=== PATIENT | male | born 1980 | race Caucasian/White ===

== ENCOUNTER → 2018-09-18 | Outpatient (REF) | payer OTHER ==
[2018-09-18 20:52] LABS: C REACTIVE PROTEIN QUANTITATIV < 0.30 MG/DL (0.00-0.30); RHEUMATOID FACTOR QUANT < 10.0 IU/ML (<15.0)
[2018-09-20 17:10] LABS: ANTINUCLEAR ANTIBODIES DIRECT Negative (Negative); Lyme Disease IgG/IgM Antibodie <0.91 ISR (0.00-0.90); Lyme Disease IgM Ab Quantitati <0.80 index (0.00-0.79)
== END ==
LOC: M SFHCLERA 19:27
PROVIDERS: ATTEND Physician Assistant
DX: M25.50 Pain in unspecified joint (principal)

== ENCOUNTER → 2018-11-29 | Outpatient (CLI) | payer OTHER ==
[~2018-11-29] MED LIST: ATOV5SUS PO; B-1100TA2 PO; FOLI1TAB11 PO; METH2.5T48 PO; OMEP-221 PO; PERC5TAB12 PO; PRED20TA PO; VITA500045 PO
--- NOTE | 2018-11-29 10:01 | REP ---
HISTORY: Neck pain. No trauma whatsoever. COMPARISON: No priors. There is endplate irregularity and a mild anterior wedge-shaped deformity seen involving C6. This is chronic. The disc spaces are symmetric and well maintained. Vertebral body height and alignment is otherwise unremarkable. Four limited views cannot assess the intervertebral foramina. There is a calcification in the left neck, possibly from carotid arterial calcifications. IMPRESSION: 1. I cannot rule out a fracture on this limited exam. 2. Chronic changes are suspected as described above. 3. Exam limitations as described above. Electronically Signed by Oziel Hernandez DO 11/29/2018 09:44 A
[2018-11-29 11:22] LABS: BASO # 0.1 10^3/uL (0.0-0.2); EOS # 0.4 10^3/uL (0.0-0.50); EOS % 5.9 % (0.0-3.0); HEMATOCRIT 46.6 % (42.0-52.0); HEMOGLOBIN 14.8 g/dl (13.5-17.5); LYMPH # 2.4 10^3/uL (1.5-4.5); LYMPH % 33.9 % (24.0-44.0); MEAN CORPUSCULAR HGB CONC 31.8 g/dl (32.0-36.5); MEAN CORPUSCULAR VOLUME 94.3 fl (80.0-96.0); MONO # 0.5 10^3/uL (0.0-0.8); MONO % 7.4 % (0.0-5.0); NEUTROPHILS # 3.7 10^3/uL (1.8-7.7); NEUTROPHILS % 51.2 % (36.0-66.0); PLATELET COUNT, AUTOMATED 236 10^3/uL (150-450); RED BLOOD COUNT 4.94 10^6/uL (4.30-6.10); WHITE BLOOD COUNT 7.2 10^3/uL (4.0-10.0)
[2018-11-29 11:45] LABS: ERYTHROCYTE SEDIMENTATION RATE 5 mm/hr (0-15)
[2018-11-29 11:56] LABS: ALBUMIN 3.7 GM/DL (3.2-5.2); ALT/SGPT 355 U/L (12-78); BILIRUBIN,TOTAL 0.2 MG/DL (0.2-1.0); BLOOD UREA NITROGEN 12 MG/DL (7-18); CALCIUM LEVEL 9.4 MG/DL (8.5-10.1); CARBON DIOXIDE LEVEL 32 MEQ/L (21-32); CHLORIDE LEVEL 104 MEQ/L (98-107); CHOLESTEROL LEVEL 185 MG/DL (<200); CPK CREATINE PHOSPHOKINASE 7746 U/L (39-308); CREATININE FOR GFR 0.45 MG/DL (0.70-1.30); FREE T4 0.95 NG/DL (0.76-1.46); GLOMERULAR FILTRATION RATE > 60.0 (>60); GLUCOSE, FASTING 100 MG/DL (70-100); HDL CHOLESTEROL 37 MG/DL (>40); LDL CHOLESTEROL 116 MG/DL (<100); MAGNESIUM LEVEL 1.9 MG/DL (1.8-2.4); NON-HDL-C 148 MG/DL; POTASSIUM SERUM 4.6 MEQ/L (3.5-5.1); PROSTATIC SPECIFIC AG MONITOR 0.44 NG/ML (< 4.00); SODIUM LEVEL 141 MEQ/L (136-145); TRIGLYCERIDES LEVEL 161 MG/DL (<150)
[2018-12-03 00:09] LABS: Lyme Disease IgG/IgM Antibodie <0.91 ISR (0.00-0.90); Lyme Disease IgM Ab Quantitati <0.80 index (0.00-0.79)
== END ==
LOC: M WUC 08:45
PROVIDERS: ATTEND Family Medicine
DX: M62.50 Muscle wasting and atrophy, not elsewhere classified, unspecified site (principal); M62.81 Muscle weakness (generalized); Z00.00 Encounter for general adult medical examination without abnormal findings; M54.2 Cervicalgia

== ENCOUNTER 2019-03-28 08:54 | Emergency (ER) | payer OTHER ==
[~2019-03-28] VITALS: Ht 175.3 cm; Wt 65.9 kg
[2019-03-28] MEDS ORDERED: NS 1,000 ML IV SCH (09:09)
[2019-03-28] MEDS ORDERED: MORPHINE 2 MG/ML 1ML VIAL (J2270) IV PRN (09:15)
[2019-03-28] MEDS ORDERED: ONDANSETRON 4MG/2ML VIAL (J2405) IV ONE (09:15)
[2019-03-28] MEDS ORDERED: VITA500045 PO (09:20)
[2019-03-28] MEDS ORDERED: ATOV5SUS PO (09:20)
[2019-03-28] MEDS ORDERED: OMEP-221 PO (09:20)
[2019-03-28] MEDS ORDERED: METH2.5T48 PO (09:20)
[2019-03-28] MEDS ORDERED: FOLI1TAB11 PO (09:20)
[2019-03-28] MEDS ORDERED: B-1100TA2 PO (09:20)
[2019-03-28] MEDS ORDERED: PRED20TA PO (09:20)
[2019-03-28 09:35] LABS: BASO % 0.4 % (0.0-1.0); EOS % 0.4 % (0.0-3.0); HEMOGLOBIN 13.3 g/dl (13.5-17.5); LYMPH # 1.2 10^3/uL (1.5-5.0); LYMPH % 13.1 % (24.0-44.0); MEAN CORPUSCULAR HEMOGLOBIN 30.4 pg (27.0-33.0); MEAN CORPUSCULAR HGB CONC 31.7 g/dl (32.0-36.5); MEAN CORPUSCULAR VOLUME 96.1 fl (80.0-96.0); MONO # 0.7 10^3/uL (0.0-0.8); NEUTROPHILS # 7.1 10^3/uL (1.5-8.5); NEUTROPHILS % 77.1 % (36.0-66.0); PLATELET COUNT, AUTOMATED 181 10^3/uL (150-450); RED BLOOD COUNT 4.37 10^6/uL (4.30-6.10); WHITE BLOOD COUNT 9.2 10^3/uL (4.0-10.0)
[2019-03-28 09:49] LABS: INR 0.99; PROTHROMBIN TIME 12.8 SECONDS (11.8-14.0)
[2019-03-28 09:55] LABS: ERYTHROCYTE SEDIMENTATION RATE 57 mm/hr (0-15)
[2019-03-28 10:28] LABS: ALBUMIN 3.6 GM/DL (3.2-5.2); ALT/SGPT 28 U/L (12-78); BILIRUBIN,DIRECT 0.2 MG/DL (0.0-0.2); BILIRUBIN,TOTAL 0.6 MG/DL (0.2-1.0); BLOOD UREA NITROGEN 20 MG/DL (7-18); CALCIUM LEVEL 9.2 MG/DL (8.5-10.1); CARBON DIOXIDE LEVEL 32 MEQ/L (21-32); CHLORIDE LEVEL 97 MEQ/L (98-107); CK-MB VALUE MASS 5.5 NG/ML (<3.6); CPK CREATINE PHOSPHOKINASE 218 U/L (39-308); CREATININE FOR GFR 0.67 MG/DL (0.70-1.30); GLOMERULAR FILTRATION RATE > 60.0 (>60); GLUCOSE, FASTING 120 MG/DL (70-100); LIPASE 151 U/L (73-393); MB/CK RELATIVE INDEX 2.52 (< OR =4); MYOGLOBIN 68 NG/ML (16-116); POTASSIUM SERUM 3.9 MEQ/L (3.5-5.1); SODIUM LEVEL 138 MEQ/L (136-145); TOTAL PROTEIN 7.3 GM/DL (6.4-8.2); TROPONIN I < 0.02 NG/ML (< 0.10)
--- NOTE | 2019-03-28 10:29 | REP ---
AP PORTABLE CHEST: 03/28/2019 at 9:37 AM. CLINICAL HISTORY: Chest pain. FINDINGS: No prior studies. Lungs hypoinflated. Some patchy atelectasis or infiltrate in the left CP angle. Small effusion difficult to exclude, but none definitely identified. Heart size magnified by low level of inspiration and portable technique. No janet edema. The aorta and airway intact. Right lung clear. IMPRESSION: 1. Left base subsegmental atelectasis or patchy infiltrate at the left CP angle. Small effusion not excluded. 2. Right lung clear. Mild hypoinflation. Heart size magnified by portable hypoinflated technique. Electronically Signed by Yaya Waddell MD 03/28/2019 07:47 P
[2019-03-28] MEDS ORDERED: KETOROLAC 30 MG/ML VIAL (J1885) IV ONE (10:45)
[2019-03-28] MEDS ORDERED: ISOVUE-370 76% 100ML VIAL (Q9967) As Ordered ONE (10:51)
--- NOTE | 2019-03-28 12:13 | REP ---
CT ANGIOGRAM OF THE CHEST, 03/28/2019. COMPARISON: Portable chest this date. CLINICAL HISTORY: Chest pain. TECHNIQUE: Bolus of 75 mL Isovue-370 and scanning through the chest with pulmonary angiogram protocol and with coronal and sagittal reconstructions and standard and MIP reformats. FINDINGS: There is a small left pleural effusion and trace right effusion. Patchy basilar atelectasis or infiltrates noted, left greater than right. No dense consolidations. There is no pneumothorax. Mid and upper lung zones without infiltrate or atelectasis. No pleural plaques or calcified plaques are noted. Heart is mildly prominent with left atrial and ventricular enlargement. There is no pericardial thickening or effusion. The aorta is without aneurysm or dissection. The main, right, and left pulmonary arteries within the mediastinum are without filling defects. Lobar, segmental, and visible subsegmental arteries are also without filling defects or vessel cutoff. There is no pathologic sized mediastinal, hilar, axillary, or supraclavicular adenopathy/mass. The largest node in the brinda is an 8 mm node on the left. Bone windows show the sternum, manubrium, medial clavicles, scapulae, humeral heads, and the visualized ribs all intact and without fracture or focal lesion. Spine shows a few small marginal osteophytes without compression deformity of destructive lesion. In the upper abdomen, that portion of liver and spleen included are unremarkable. Neither is seen in their entirety. Adrenal glands are grossly normal. Portion of the pancreas including body and tail are unremarkable. I see no hiatal hernia. That portion of stomach and bowel loops included also unremarkable. Upper poles kidneys seen are intact. IMPRESSION: 1. Small left and trace right effusion with subsegmental atelectatic changes or compressive atelectasis in both bases, left more than right. 2. No dense consolidation with air bronchograms. 3. Mid and upper lung zones clear. 4. Some cardiomegaly with left atrial and ventricular enlargement but no pathologic-sized mediastinal, hilar, or axillary lymphadenopathy. 5. No CT evidence of pulmonary thromboembolism or aortic dissection/aneurysm. Electronically Signed by Yaya Waddell MD 03/28/2019 07:55 P
[2019-03-28] MEDS ORDERED: PERC5TAB12 PO (12:30)
[2019-03-28] MEDS ORDERED: PERCOCET 5MG/325MG TAB PO ONE (12:30)
[2019-03-28 12:35] VITALS: BP 105/61
--- NOTE | 2019-03-28 13:25 | ECGEPIP ---
[facility] - ED Test Date: 2019-03-28 Pat Name: NANCY AKHTAR Department: Room: - Gender: Male Clinical Interviewer: vishnu : 1980 Requested By: Perri Roth Order Number: [id number] Reading MD: Perri Roth Measurements Intervals [place] Rate: 73 P: 58 SD: 195 QRS: 1 QRSD: 104 T: 31 QT: 376 QTc: 416 Interpretive Statements SINUS RHYTHM LEFT ATRIAL ENLARGEMENT INCOMPLETE RIGHT BUNDLE BRANCH BLOCK POSSIBLE LEFT VENTRICULAR HYPERTROPHY POSSIBLE BRUGADA No prior Electronically Signed on 03-28-2019 13:25:42 EST by Perri Roth
--- NOTE | 2019-03-30 15:53 | ED PDOC ---
Post-Departure Follow-Up mikki underwood faxed formal report of cxr and cta chest for Octavia Cope MD Mar 30, 2019 15:53
== END 2019-03-28 12:52 | disposition home or self-care (01) ==
LOC: M ED 08:54
DX: R07.81 Pleurodynia (principal); I45.19 Other right bundle-branch block; I51.7 Cardiomegaly; F17.200 Nicotine dependence, unspecified, uncomplicated; Z79.899 Other long term (current) drug therapy; Z88.2 Allergy status to sulfonamides
CPT/HCPCS: 71045; 71275; 80048; 80076; 82550; 82553; 83605; 83690; 83874; 84443; 84484; 85025; 85610; 85652; 87040; 93005; 93041; 94760; 96374; 96375; 99285; J1885; J2270; J2405; Q9967

== ENCOUNTER → 2019-05-16 | Outpatient (REF) | payer OTHER | LOC: M LAB REF 18:15 | PROVIDERS: ATTEND Physician Assistant | DX: J02.9 Acute pharyngitis, unspecified (principal) ==

== ENCOUNTER 2019-11-03 12:53 | Emergency (ER) | payer OTHER ==
[~2019-11-03] VITALS: Ht 172.7 cm; Wt 87.5 kg
[~2019-11-03 12:53] MED LIST changes: -AZIT-12 PO
[2019-11-03 13:50] LABS: BASO # 0.1 10^3/uL (0.0-0.2); BASO % 0.6 % (0.0-1.0); EOS % 0.3 % (0.0-3.0); HEMATOCRIT 44.6 % (42.0-52.0); HEMOGLOBIN 14.7 g/dl (13.5-17.5); LYMPH % 9.8 % (24.0-44.0); MEAN CORPUSCULAR HEMOGLOBIN 30.6 pg (27.0-33.0); MEAN CORPUSCULAR VOLUME 92.9 fl (80.0-96.0); MONO # 0.6 10^3/uL (0.0-0.8); MONO % 5.3 % (0.0-5.0); NEUTROPHILS # 8.7 10^3/uL (1.5-8.5); PLATELET COUNT, AUTOMATED 211 10^3/uL (150-450); WHITE BLOOD COUNT 10.4 10^3/uL (4.0-10.0)
[2019-11-03] MEDS ORDERED: methylPREDNISolone 125MG 2ML VIAL IV ONE (14:15)
[2019-11-03 14:23] LABS: ALBUMIN 3.4 GM/DL (3.2-5.2); ALT/SGPT 30 U/L (12-78); BILIRUBIN,DIRECT 0.2 MG/DL (0.0-0.2); BILIRUBIN,TOTAL 0.5 MG/DL (0.2-1.0); BLOOD UREA NITROGEN 16 MG/DL (7-18); CALCIUM LEVEL 9.4 MG/DL (8.5-10.1); CARBON DIOXIDE LEVEL 26 MEQ/L (21-32); CHLORIDE LEVEL 100 MEQ/L (98-107); CREATININE FOR GFR 0.92 MG/DL (0.70-1.30); GLOMERULAR FILTRATION RATE > 60.0 (>60); GLUCOSE, FASTING 113 MG/DL (70-100); POTASSIUM SERUM 4.5 MEQ/L (3.5-5.1); SODIUM LEVEL 134 MEQ/L (136-145); TOTAL PROTEIN 9.6 GM/DL (6.4-8.2)
[2019-11-03 14:44] LABS: C REACTIVE PROTEIN QUANTITATIV 1.75 MG/DL (0.00-0.30); CK-MB VALUE MASS 3.8 NG/ML (<3.6); CPK CREATINE PHOSPHOKINASE 140 U/L (39-308); MB/CK RELATIVE INDEX 2.71 (< OR =4)
[2019-11-03 15:10] LABS: ERYTHROCYTE SEDIMENTATION RATE 24 mm/hr (0-15)
[2019-11-03] MEDS ORDERED: AZIT-12 PO (18:15)
[2019-11-03] MEDS ORDERED: PRED20TA PO (18:15)
[2019-11-03 18:27] VITALS: BP 137/72
--- NOTE | 2019-11-03 21:00 | ECGEPIP ---
[facility] - ED Test Date: 2019-11-03 Pat Name: NANCY AKHTAR Department: Room: - Gender: Male [employer]: GARO : 1980 Requested By: Perri Roth Order Number: [id number] Reading MD: Perri Roth Measurements Intervals [place] Rate: 83 P: 38 WV: 180 QRS: -9 QRSD: 101 T: 12 QT: 364 QTc: 430 Interpretive Statements SINUS RHYTHM MODERATE VOLTAGE CRITERIA FOR LVH, CONSIDER NORMAL VARIANT NSTTW abnormalities Electronically Signed on 11-03-2019 21:00:27 EDT by Perri Roth
== END 2019-11-03 18:42 | disposition home or self-care (01) ==
LOC: M ED 12:53
DX: R91.8 Other nonspecific abnormal finding of lung field (principal); R09.1 Pleurisy; Z87.891 Personal history of nicotine dependence; Z79.899 Other long term (current) drug therapy; Z88.2 Allergy status to sulfonamides
CPT/HCPCS: 80047; 80048; 80076; 82550; 82553; 83605; 84484; 85025; 85652; 86140; 87486; 87581; 87633; 87798; 93005; 93041; 94760; 96374; 99284; J2930

== ENCOUNTER → 2019-11-03 | Outpatient (CLI) | payer OTHER ==
[~2019-11-03] MED LIST changes: +AZIT-12 PO
--- NOTE | 2019-11-03 14:47 | REP ---
REASON: Chest pain. COMPARISON: 03/28/2019 The technique utilized in obtaining the radiograph has magnified the cardiac silhouette and accentuated the interstitial markings. Patchy left basilar opacities persist. There are no new abnormal opacities. The heart is not enlarged and the osseous structures are stable and intact. IMPRESSION: Persistent patchy and curvilinear left basilar opacities. Chronic subsegmental atelectatic change versus fibrotic change versus pneumonia. Correlate clinically. Electronically Signed by Oziel Hernanedz DO 11/03/2019 04:06 P
--- NOTE | 2019-11-03 14:51 | REP ---
REASON: Chest and shoulder pain, atraumatic. COMPARISON: No priors. FINDINGS: Three views of the left shoulder were performed. The acromioclavicular and glenohumeral relationships are within normal limits. There is no acute fracture or destructive osseous lesions. Electronically Signed by Oziel Hernandez DO 11/03/2019 04:06 P
== END ==
LOC: M WUC 11:57
PROVIDERS: ATTEND Nurse Practitioner Family
DX: R07.9 Chest pain, unspecified (principal); R91.8 Other nonspecific abnormal finding of lung field

== ENCOUNTER → 2020-12-08 | Outpatient (CLI) | payer OTHER ==
[~2020-12-08] MED LIST changes: +AZIT-12 PO; +B-12100T2 PO; +FERR32TA PO; +IVIG IV; +NOXI1TAB PO
== END ==
LOC: M LABSMTC 13:03
PROVIDERS: ATTEND Anesthesiology
DX: Z01.812 Encounter for preprocedural laboratory examination (principal); Z20.822 Contact with and (suspected) exposure to COVID-19

== ENCOUNTER 2020-12-13 09:14 | Day surgery (SDC) | payer OTHER ==
[~2020-12-13] VITALS: Ht 175.3 cm; Wt 90.6 kg
[~2020-12-13 09:14] MED LIST changes: +LR 1,000 ML IV ONE; +ceFAZolin SOD 2 GM in IV 1 EA IV ONE
[2020-12-13] MEDS ORDERED: MIDAZOLAM INJ 2MG/2ML VIAL (J2250 PER 1MG) As Ordered ONE (09:27)
[2020-12-13] MEDS ORDERED: SUGAMMADEX SODIUM 500 MG/5 ML VIAL (BRIDION) As Ordered ONE (09:28)
[2020-12-13] MEDS ORDERED: fentaNYL 100 MCG/2 ML INJECTION (J3010) As Ordered ONE (09:28)
[2020-12-13] MEDS ORDERED: BUPIVACAINE/EPIN 0.25% 30 ML VIAL As Ordered ONE (10:16)
[2020-12-13] MEDS ORDERED: BUPIVACAINE HCL 0.25% 10ML VIAL As Ordered ONE (10:16)
[2020-12-13] MEDS ORDERED: BUPIVACAINE LIPOSOME/PF 1.3% 20ML VIAL (13.3MG/ML)(EXPAREL)(C9290 PER1MG) As Ordered ONE (10:17)
[2020-12-13] MEDS ORDERED: CHLOROPROCAINE PRES. FREE 2% 20ML VIAL As Ordered ONE (10:40)
[2020-12-13] MEDS ORDERED: ONDANSETRON 4MG/2ML VIAL As Ordered ONE (11:02)
[2020-12-13] MEDS ORDERED: KETOROLAC 60MG 2ML VIAL As Ordered ONE (11:02)
[2020-12-13] MEDS ORDERED: ONDANSETRON 4MG/2ML VIAL IV PRN (11:55)
[2020-12-13] MEDS ORDERED: LR 1,000 ML IV SCH (11:55)
[2020-12-13] MEDS ORDERED: oxyCODONE 5MG TAB PO PRN (11:55)
[2020-12-13] MEDS ORDERED: fentaNYL 100 MCG/2 ML INJECTION (J3010) IV PRN (11:55)
[2020-12-13 13:10] VITALS: BP 138/85
--- NOTE | 2020-12-30 14:31 | RO ---
OPERATIVE NOTE DATE OF OPERATION: 12/13/2020 PREOPERATIVE DIAGNOSIS: Umbilical hernia. POSTOPERATIVE DIAGNOSIS: Umbilical hernia. PROCEDURE: Umbilical hernia repair. SURGEON: Felipe Bird Jr, MD WASTE [employer] OPERATOR: ANESTHESIA: General endotracheal anesthesia. EBL: Minimal. FLUIDS: Crystalloid. DESCRIPTION OF PROCEDURE: The patient was brought to the operating room, was given general anesthesia. After adequate anesthesia and preoperative antibiotics were given, the patient was prepped and draped in usual sterile fashion. A supraumbilical incision was made with skin knife, blunt dissection was carried down to fascia and umbilical hernia was dissected out to the level of the fascia. Fascial defect was not very large at this point and given that it was not a very large fascial defect I felt that this would be amenable to primary closure. Thus, the preperitoneal fat that was coming through the fascial defect was transected at the level of the fascia and once this was transected the fascia itself was brought together with multiple interrupted [id number] #0 Ethibond sutures. The 3-0 Vicryl was used to close the dermis and 4-0 Vicryl was used to approximate the skin. Steri-Strips and dry, sterile dressing were applied. The patient was awakened, extubated and brought to the recovery room awake, alert and hemodynamically stable. Sponge and needle counts correct x2.
== END 2020-12-13 13:15 | disposition home or self-care (01) ==
LOC: M SDC 09:14
PROVIDERS: ATTEND Surgery
DX: K42.9 Umbilical hernia without obstruction or gangrene (principal); G72.81 Critical illness myopathy; Z87.891 Personal history of nicotine dependence; Z88.2 Allergy status to sulfonamides; Z79.899 Other long term (current) drug therapy; Z79.52 Long term (current) use of systemic steroids
CPT/HCPCS: 49585; 88302; C9290; J0690; J1885; J2250; J2400; J2405; J3010

== ENCOUNTER → 2025-02-05 | Outpatient (CLI) | payer BC ==
[~2025-02-05] MED LIST changes: -LR 1,000 ML IV ONE; -OMEP-221 PO; +OMEP40CA5 PO; -ceFAZolin SOD 2 GM in IV 1 EA IV ONE
== END ==
LOC: M WHC 13:58
PROVIDERS: ATTEND Internal Medicine Rheumatology
DX: G72.49 Other inflammatory and immune myopathies, not elsewhere classified (principal); Z79.52 Long term (current) use of systemic steroids; M62.81 Muscle weakness (generalized); M85.88 Other specified disorders of bone density and structure, other site

== ENCOUNTER 2025-04-10 17:01 | Emergency (ER) | payer BC ==
[~2025-04-10] VITALS: Ht 175.3 cm; Wt 77.3 kg
[2025-04-10] MEDS: PERCOCET 5MG/325MG TAB PO ONE (20:08)
[2025-04-10] MEDS ORDERED: PERC5TAB12 PO (21:00)
[2025-04-10] MEDS ORDERED: MIRA3350 PO (21:00)
[2025-04-10 21:05] VITALS: BP 130/79; TEMP 98.6; O2SAT 96
[2025-04-10] MEDS: OXYCODONE/APAP 5MG/325MG(HOME DOSE PACK) PO ONE (21:08)
== END 2025-04-10 21:13 | disposition home or self-care (01) ==
LOC: M ED 17:01
DX: S42.342A Displaced spiral fracture of shaft of humerus, left arm, initial encounter for closed fracture (principal); W01.198A Fall on same level from slipping, tripping and stumbling with subsequent striking against other object, initial encounter; Y92.89 Other specified places as the place of occurrence of the external cause; Y93.89 Activity, other specified; Y99.9 Unspecified external cause status; Z88.2 Allergy status to sulfonamides; Z79.52 Long term (current) use of systemic steroids; Z79.899 Other long term (current) drug therapy